=== PATIENT | female | born 1970 | race African-American/Black ===

== ENCOUNTER 2021-01-17 07:29 | Emergency (ER) | payer OTHER ==
[~2021-01-17] VITALS: Ht 170.2 cm; Wt 70.0 kg
[2021-01-17] MEDS ORDERED: ACETAMINOPHEN 325MG TABLET PO ONE (08:45)
[2021-01-17] MEDS ORDERED: LIDOCAINE 5% PATCH TOP SCH (09:00)
[2021-01-17] MEDS ORDERED: BACL-141 MT (09:43)
[2021-01-17] MEDS ORDERED: ACET-2708 MT (09:43)
[2021-01-17] MEDS ORDERED: LIDO700A15 TP (09:43)
[2021-01-17 10:00] VITALS: BP 148/63
== END 2021-01-17 10:01 | disposition home or self-care (01) ==
LOC: EDBD 07:29 → ER 07:55
DX: S13.4XXA Sprain of ligaments of cervical spine, initial encounter (principal); R03.0 Elevated blood-pressure reading, without diagnosis of hypertension; I51.9 Heart disease, unspecified; M47.892 Other spondylosis, cervical region; Z98.1 Arthrodesis status; V43.52XA Car driver injured in collision with other type car in traffic accident, initial encounter; Y93.89 Activity, other specified; Y92.488 Other paved roadways as the place of occurrence of the external cause
CPT/HCPCS: 99284